=== PATIENT | male | born 1945 | race Caucasian/White ===

== ENCOUNTER 2016-12-21 18:49 | Emergency (ER) | payer BC, MEDICARE ==
[2016-12-21] MEDS ORDERED: SODIUM CHLORIDE 0.9% 500 ML IV STA (19:12)
[2016-12-21] MEDS ORDERED: IBUPROFEN 600 MG TAB PO STA (19:12)
--- NOTE | 2016-12-21 19:17 | ED ---
General Adult HPI - General Chief complaint: Recheck/Abnormal Lab/Rx Stated complaint: hypertension Time Seen by Provider: 12/21/16 19:06 Source: patient Mode of arrival: ambulatory Limitations: no limitations - History of Present Illness Initial comments: 71-year-old male patient presented to emergency department today for evaluation after being sent by [email or web address]. [facility] [place] [facility] for complaints of cough, body aches, and headache. Patient states that he has felt feverish and had chills for the last 2 days. Patient stated he has had a cough for the last week. Patient states he is coughing up clear sputum. He states he has also had some nasal congestion. He denies any sore throat. He denies any chest pain, shortness of breath, abdominal pain, nausea, vomiting , constipation, diarrhea, dysuria, hematuria, urinary frequency, urinary urgency. He denies any back or flank pain. Denies any sick contacts. Patient is also concerned because his blood pressure was elevated at 210/100 while at [facility]. Patient does have a history of hypertension and does take losartan for this. Her blood pressure readings here have been improved. - Related Data Home Medications Medication Instructions Recorded Confirmed Aspirin [Adult Low Dose Aspirin EC] 81 mg PO DAILY 12/21/16 12/21/16 Ezetimibe [Zetia] 10 mg PO DAILY 12/21/16 12/21/16 Losartan Potassium [Cozaar] 100 mg PO DAILY 12/21/16 12/21/16 Omeprazole [PriLOSEC] 20 mg PO DAILY 12/21/16 12/21/16 Pravastatin Sodium [Pravachol] 40 mg PO DAILY 12/21/16 12/21/16 Ubidecarenone [Co Q-10] 300 mg PO DAILY 12/21/16 12/21/16 amLODIPine [Norvasc] 5 mg PO DAILY 12/21/16 12/21/16 guaiFENesin [Mucinex] 600 mg PO DAILY PRN 12/21/16 12/21/16 Previous Rx's Medication Instructions Recorded Levofloxacin [Levaquin] 500 mg PO DAILY #10 tab 12/21/16 Allergies Allergy/AdvReac Type Severity Reaction Status Date / Time Penicillins Allergy Rash/Hives Verified 12/21/16 19:36 Review of Systems ROS Statement: Those systems with pertinent positive or pertinent negative responses have been documented in the HPI. ROS Other: All systems not noted in ROS Statement are negative. Past Medical History Past Medical History: Hyperlipidemia, Hypertension History of Any Multi-Drug Resistant Organisms: None Reported Past Surgical History: Cholecystectomy Past Psychological History: No Psychological Hx Reported Smoking Status: Former smoker Past Alcohol Use History: Occasional Past Drug Use History: None Reported General Exam Limitations: no limitations General appearance: alert, in no apparent distress Head exam: Present: atraumatic, normocephalic, normal inspection Eye exam: Present: normal appearance, PERRL, EOMI. Absent: scleral icterus, conjunctival injection, periorbital swelling ENT exam: Present: normal exam, normal oropharynx, mucous membranes moist Neck exam: Present: normal inspection, full ROM. Absent: tenderness, meningismus, lymphadenopathy Respiratory exam: Present: normal lung sounds bilaterally. Absent: respiratory distress, wheezes, rales, rhonchi, stridor Cardiovascular Exam: Present: regular rate, normal rhythm, normal heart sounds. Absent: systolic murmur, diastolic murmur, rubs, gallop, clicks GI/Abdominal exam: Present: soft, normal bowel sounds. Absent: distended, tenderness, guarding, rebound, rigid Extremities exam: Present: normal inspection, full ROM, normal capillary refill. Absent: tenderness, pedal edema, joint swelling, calf tenderness Back exam: Present: normal inspection. Absent: CVA tenderness (R), CVA tenderness (L) Neurological exam: Present: alert, oriented X3, CN II-XII intact Psychiatric exam: Present: normal affect, normal mood Skin exam: Present: warm, intact, normal color. Absent: dry (Some swelling to the forehead noted), rash Course Vital Signs 12/21/16 12/21/16 12/21/16 18:58 20:34 20:50 Temperature 102 F H 99.2 F Pulse Rate 86 69 Respiratory 18 20 Rate Blood Pressure 159/74 133/63 O2 Sat by Pulse 93 L 96 Oximetry Medical Decision Making - Medical Decision Making 71-year-old male patient presents to emergency department today for evaluation of fever, cough and urinary tract infection diagnosed by [facility] urgent care. Chest x-ray did show a developing right lower lobe infiltrate. In light of the developing pneumonia as well as urinary tract infection patient's antibiotic will be changed from Macrobid to Levaquin. Patient vital signs are stable, he has no white blood cell count, and his lactic acid is negative at this time. Temperature has improved. Patient will be discharged home for outpatient management at this time. Patient instructed about this primary care physician in one to 2 days for a recheck. Patient instructed to have a repeat chest x-ray performed 2 weeks after completion of antibiotics for further evaluation of the right lower lobe density. Patient instructed to return to the emergency department immediately for any new, worsening, or concerning symptoms. Patient verbalizes understanding and agrees with this plan. - Lab Data Result diagrams: 12/21/16 19:56 12/21/16 19:56 Lab Results 12/21/16 12/21/16 12/21/16 Range/Units 19:56 19:56 19:56 WBC 5.5 (3.8-10.6) k/uL RBC 4.11 L (4.30-5.90) m/uL Hgb 13.0 (13.0-17.5) gm/dL Hct 38.0 L (39.0-53.0) % MCV 92.6 (80.0-100.0) fL MCH 31.7 (25.0-35.0) pg MCHC 34.3 (31.0-37.0) g/dL RDW 13.7 (11.5-15.5) % Plt Count 103 L (150-450) k/uL Neutrophils % 85 % Lymphocytes % 8 % Monocytes % 4 % Eosinophils % 1 % Basophils % 0 % Neutrophils # 4.6 (1.3-7.7) k/uL Lymphocytes # 0.5 L (1.0-4.8) k/uL Monocytes # 0.2 (0-1.0) k/uL Eosinophils # 0.1 (0-0.7) k/uL Basophils # 0.0 (0-0.2) k/uL Sodium 137 (137-145) mmol/L Potassium 3.8 (3.5-5.1) mmol/L Chloride 104 (98-107) mmol/L Carbon Dioxide 21 L (22-30) mmol/L Anion Gap 12 mmol/L BUN 14 (9-20) mg/dL Creatinine 0.80 (0.66-1.25) mg/dL Est GFR (MDRD) Af Amer >60 (>60 ml/min/1.73 sqM) Est GFR (MDRD) Non-Af >60 (>60 ml/min/1.73 sqM) Glucose 113 H (74-99) mg/dL Plasma Lactic Acid Foster 0.7 (0.7-2.0) mmol/L Calcium 8.8 (8.4-10.2) mg/dL Total Bilirubin 0.6 (0.2-1.3) mg/dL AST 32 (17-59) U/L ALT 46 (21-72) U/L Alkaline Phosphatase 82 (38-126) U/L Total Protein 6.6 (6.3-8.2) g/dL Albumin 4.0 (3.5-5.0) g/dL - Radiology Data Radiology results: report reviewed, image reviewed Two-view x-ray of the chest shows some increased opacity in the right lower lobe on two-view was worrisome for developing infiltrate. Left lung is clear. No pleural effusion or pneumothorax is present bilaterally. The cardiac silhouette size is within normal limits. The osseous structures are intact. Impression by Dr. Brooks shows developing right lower lobe infiltrate. Consider progress study. Disposition Clinical Impression: Pneumonia, Urinary tract infection Disposition: HOME SELF-CARE Condition: Good Instructions: Urinary Tract Infection in Men (ED), Community Acquired Pneumonia (ED) Additional Instructions: Increase fluids. Alternate Tylenol Motrin for fever control. Follow up with urology for further evaluation of urinary tract infection. Complete antibiotic prescription and full. Return for any new, worsening, or concerning symptoms. Prescriptions: Levofloxacin [Levaquin] 500 mg PO DAILY #10 tab Referrals: Nonstaff,Physician [Primary Care Provider] - 1-2 days Time of Disposition: 21:23
[2016-12-21 20:07] LABS: Basophils % (A) 0 %; CH 32.9; CHCM 35.7; Eosinophils # (A) 0.1 k/uL (0-0.7); Eosinophils % (A) 1 %; HDW 2.76; Luc # (Auto) 0.09; Luc % (Auto) 2; Lymphocytes # (A) 0.5 k/uL (1.0-4.8); Lymphocytes % (A) 8 %; MCH 31.7 pg (25.0-35.0); MCHC 34.3 g/dL (31.0-37.0); MCV 92.6 fL (80.0-100.0); Mean Platelet Volume 8.1; Monocytes # (A) 0.2 k/uL (0-1.0); Monocytes % (A) 4 %; Neutrophils # (A) 4.6 k/uL (1.3-7.7); Neutrophils % (A) 85 %; RBC 4.11 m/uL (4.30-5.90); RDW 13.7 % (11.5-15.5); WBC 5.5 k/uL (3.8-10.6); WBC (Perox) 5.98
[2016-12-21 20:16] LABS: ALT 46 U/L (21-72); AST 32 U/L (17-59); Alkaline Phosphatase 82 U/L (38-126); Anion Gap 12 mmol/L; Blood Urea Nitrogen 14 mg/dL (9-20); Calcium 8.8 mg/dL (8.4-10.2); Carbon Dioxide 21 mmol/L (22-30); Chloride 104 mmol/L (98-107); Glucose 113 mg/dL (74-99); Non-African American GFR(MDRD) >60 (>60 ml/min/1.73 sqM); Potassium 3.8 mmol/L (3.5-5.1); Sodium 137 mmol/L (137-145); Total Bilirubin 0.6 mg/dL (0.2-1.3); Total Protein 6.6 g/dL (6.3-8.2)
--- NOTE | 2016-12-21 20:24 | XR ---
EXAMINATION TYPE: XR chest 2V DATE OF EXAM: 12/21/2016 COMPARISON: NONE HISTORY: Cough and fever. TECHNIQUE: Frontal and lateral views of the chest are obtained. FINDINGS: There is some increased opacity right lower lobe on 2 views worrisome for developing infil trate. Left lung is clear. No pleural effusion or pneumothorax is present bilaterally. The cardiac s ilhouette size is within normal limits. The osseous structures are intact. IMPRESSION: Suspect developing right lower lobe infiltrate. Consider progress study.
[2016-12-21 20:35] VITALS: RESP 20
[2016-12-21] MEDS ORDERED: LEVOFLOXACIN 500 MG TAB PO STA (21:23)
[2016-12-21 21:49] VITALS: BP 132/63; PULSE 66; TEMP 98.5
== END 2016-12-21 21:49 | disposition home or self-care (01) ==
LOC: EC 18:49
DX: J18.9 Pneumonia, unspecified organism (principal); N39.0 Urinary tract infection, site not specified; E78.5 Hyperlipidemia, unspecified; I10 Essential (primary) hypertension; Z88.0 Allergy status to penicillin; Z79.82 Long term (current) use of aspirin; Z79.899 Other long term (current) drug therapy; Z87.891 Personal history of nicotine dependence
CPT/HCPCS: 36415; 71020; 80053; 83605; 85025; 87040; 96360; 99284